=== PATIENT | male | born 1940 | race Caucasian/White ===

== ENCOUNTER 2018-12-03 19:23 | Observation (INO) | payer MEDICAID ==
[2018-12-03 20:31] LABS: HEMOGLOBIN A1C 8.6 % (0-5.9)
[2018-12-03 20:36] LABS: INR 0.93; PROTIME 12.6 Sec (11.9-14.9)
[2018-12-03 20:37] LABS: PARTIAL THROMBOPLASTIN TIME 26.3 Sec (23.0-35.0)
[2018-12-03 20:39] LABS: ANION GAP 11 (5-13); BLOOD UREA NITROGEN 20 mg/dl (7-20); CALCIUM 10.4 mg/dl (8.4-10.2); CARBON DIOXIDE 30 mmol/L (21-31); CHLORIDE 101 mmol/L (97-110); CHOL/HDL RATIO 4.5 RATIO; CHOLESTEROL 180 mg/dl (100-200); GLUCOSE 147 mg/dl (70-220); HDL CHOLESTEROL 40 mg/dl (31-75); LDL CHOLESTEROL,CALCULATED 119 mg/dl; POTASSIUM 3.3 mmol/L (3.5-5.1); SODIUM 142 mmol/L (135-144); TRIGLYCERIDES 104 mg/dl (0-149)
[2018-12-03 20:48] LABS: ADD MAN DIFF? NO
[2018-12-03 20:50] LABS: WHITE BLOOD COUNT 7.1 10^3/ul (4.8-10.8)
[2018-12-03 20:50] LABS: BASOPHIL # 0.1 10^3/ul (0.0-0.1); BASOPHILS % 0.7 % (0.0-2.0); EOSINOPHILS # 0.1 10^3/ul (0.0-0.5); EOSINOPHILS % 1.7 % (0.0-7.0); HEMATOCRIT 42.9 % (42.0-52.0); HEMOGLOBIN 14.7 g/dl (14.0-18.0); LYMPHOCYTES # 1.4 10^3/ul (0.8-2.9); LYMPHOCYTES % 19.4 % (15.0-51.0); MEAN CORPUSCULAR HEMOGLOBIN 30.2 pg (29.0-33.0); MEAN CORPUSCULAR HGB CONC 34.3 g/dl (32.0-37.0); MEAN CORPUSCULAR VOLUME 88.1 fl (82.0-101.0); MEAN PLATELET VOLUME 11.3 fl (7.4-10.4); MONOCYTE # 0.8 10^3/ul (0.3-0.9); MONOCYTES % 10.8 % (0.0-11.0); NEUTROPHIL # 4.8 10^3/ul (1.6-7.5); PLATELET COUNT 225 10^3/UL (140-415); RED BLOOD COUNT 4.87 10^6/ul (4.70-6.10); RED CELL DISTRIBUTION WIDTH 11.9 % (11.5-14.5); TROPONIN-I < 0.012 ng/ml (0.000-0.120)
[2018-12-03] MEDS: POTASSIUM CHLORIDE (SR) 20 MEQ TAB PO (20:59)
[2018-12-03 21:23] LABS: ADD UMIC YES; UR ASCORBIC ACID NEGATIVE (NEGATIVE); UR BACTERIA FEW /HPF (NONE SEEN); UR BILIRUBIN (Dip) NEGATIVE (NEGATIVE); UR BLOOD (Dip) NEGATIVE (NEGATIVE); UR CLARITY CLEAR (CLEAR); UR COLOR YELLOW (YELLOW); UR GLUCOSE (Dip) NEGATIVE (NEGATIVE); UR KETONES (Dip) NEGATIVE (NEGATIVE); UR LEUKOCYTE ESTERASE (Dip) NEGATIVE Leu/ul (NEGATIVE); UR NITRITE (Dip) NEGATIVE (NEGATIVE); UR RBC 1 /HPF (0-5); UR SPECIFIC GRAVITY (Dip) 1.015 (1.003-1.030); UR TOTAL PROTEIN (Dip) 2+ mg/dl (NEGATIVE); UR UROBILINOGEN (Dip) NEGATIVE (NEGATIVE); UR WBC 0 /HPF (0-5)
[2018-12-03] MEDS ORDERED: DOCUSATE SODIUM 100 MG CAP PO (21:30)
[2018-12-03] MEDS ORDERED: BISACODYL (EC) 5 MG TAB PO (21:30)
[2018-12-03] MEDS ORDERED: ACETAMINOPHEN 325 MG TAB PO (21:30)
[2018-12-03] MEDS ORDERED: NACL 0.9% 3 ML SYG IV (21:30)
[2018-12-03 21:51] LABS: AMPHETAMINE/METHAMPHETAMINE Negative (NEGATIVE); BARBITURATES Negative (NEGATIVE); BENZODIAZEPINES Negative (NEGATIVE); CANNABINOIDS Negative (NEGATIVE); COCAINE Negative (NEGATIVE); OPIATES Negative (NEGATIVE)
[2018-12-04 06:09] LABS: ADD MAN DIFF? NO
[2018-12-04 06:15] LABS: BASOPHIL # 0.1 10^3/ul (0.0-0.1); BASOPHILS % 0.8 % (0.0-2.0); EOSINOPHILS # 0.2 10^3/ul (0.0-0.5); EOSINOPHILS % 3.5 % (0.0-7.0); HEMATOCRIT 42.8 % (42.0-52.0); HEMOGLOBIN 14.4 g/dl (14.0-18.0); LYMPHOCYTES # 1.3 10^3/ul (0.8-2.9); LYMPHOCYTES % 21.5 % (15.0-51.0); MEAN CORPUSCULAR HEMOGLOBIN 30.1 pg (29.0-33.0); MEAN CORPUSCULAR HGB CONC 33.6 g/dl (32.0-37.0); MEAN CORPUSCULAR VOLUME 89.5 fl (82.0-101.0); MEAN PLATELET VOLUME 11.4 fl (7.4-10.4); MONOCYTE # 0.9 10^3/ul (0.3-0.9); MONOCYTES % 15.4 % (0.0-11.0); NEUTROPHIL # 3.5 10^3/ul (1.6-7.5); NEUTROPHILS % 58.3 % (39.0-77.0); PLATELET COUNT 198 10^3/UL (140-415); RED BLOOD COUNT 4.78 10^6/ul (4.70-6.10); RED CELL DISTRIBUTION WIDTH 11.9 % (11.5-14.5)
[2018-12-04 06:15] LABS: WHITE BLOOD COUNT 6.1 10^3/ul (4.8-10.8)
[2018-12-04 06:31] LABS: HEMOGLOBIN A1C 8.6 % (0-5.9)
[2018-12-04 06:46] LABS: ALANINE AMINOTRANSFERASE 27 IU/L (13-69); ALBUMIN 3.8 g/dl (3.3-4.9); ALBUMIN/GLOBULIN RATIO 1.35; ALKALINE PHOSPHATASE 74 IU/L (42-121); ANION GAP 8 (5-13); ASPARTATE AMINO TRANSFERASE 23 IU/L (15-46); BILIRUBIN,INDIRECT 0.5 mg/dl (0-1.1); BILIRUBIN,TOTAL 0.5 mg/dl (0.2-1.3); BLOOD UREA NITROGEN 18 mg/dl (7-20); CALCIUM 9.6 mg/dl (8.4-10.2); CARBON DIOXIDE 31 mmol/L (21-31); CHLORIDE 101 mmol/L (97-110); CHOL/HDL RATIO 5.1 RATIO; CHOLESTEROL 159 mg/dl (100-200); CREATININE 0.79 mg/dl (0.61-1.24); GLUCOSE 157 mg/dl (70-220); HDL CHOLESTEROL 31 mg/dl (31-75); LDL CHOLESTEROL,CALCULATED 102 mg/dl; MAGNESIUM 1.6 mg/dl (1.7-2.5); POTASSIUM 3.9 mmol/L (3.5-5.1); SODIUM 140 mmol/L (135-144); TOTAL PROTEIN 6.6 g/dl (6.1-8.1); TRIGLYCERIDES 130 mg/dl (0-149)
[2018-12-04] MEDS ORDERED: hydrALAzine 20 MG INJ IV (07:00)
[2018-12-04 07:48] LABS: CREATINE KINASE 85 IU/L (23-200)
[2018-12-04 08:01] LABS: CK INDEX 2.1; CK-MB 1.77 ng/ml (0.0-2.4); TROPONIN-I < 0.012 ng/ml (0.000-0.120)
[2018-12-04] MEDS: ASPIRIN 81 MG TAB PO (09:20)
[2018-12-04] MEDS ORDERED: GLUCAGON 1 MG INJ IM (10:00)
[2018-12-04] MEDS ORDERED: GLUCOSE GEL 15 GRAM TUBE PO ×2 (10:00)
[2018-12-04] MEDS ORDERED: GLUCOSE GEL 15 GRAM TUBE BUCCAL (10:00)
[2018-12-04] MEDS ORDERED: DEXTROSE 50% 50 ML SYRINGE IV ×2 (10:00)
[2018-12-04] MEDS: ATORVASTATIN 80 MG TAB PO ×2 (11:53→20:22)
[2018-12-04] MEDS: INSULIN ASPART [NOVOLOG] 3 ML PEN SC ×3 (11:56→20:22)
[2018-12-04 13:43] LABS: CREATINE KINASE 147 IU/L (23-200)
[2018-12-04] MEDS: MAGNESIUM SULFATE 2 GM/50 ML 50 ML IVPB (13:44)
[2018-12-04 13:56] LABS: CK INDEX 1.9; TROPONIN-I < 0.012 ng/ml (0.000-0.120)
[2018-12-04 13:59] LABS: CK-MB 2.78 ng/ml (0.0-2.4)
[2018-12-04 16:16] LABS: ERYTHROCYTE SEDIMENTATION RATE 6 mm/Hr (0-20)
[2018-12-04 16:55] LABS: RAPID PLASMA REAGIN NONREACTIVE (NR)
[2018-12-05] MEDS: ACCU-CHEK XX (02:00)
[2018-12-05 05:59] LABS: ADD MAN DIFF? NO
[2018-12-05 06:03] LABS: WHITE BLOOD COUNT 6.2 10^3/ul (4.8-10.8)
[2018-12-05 06:03] LABS: BASOPHILS % 0.6 % (0.0-2.0); EOSINOPHILS # 0.3 10^3/ul (0.0-0.5); HEMATOCRIT 43.4 % (42.0-52.0); HEMOGLOBIN 14.7 g/dl (14.0-18.0); LYMPHOCYTES # 1.3 10^3/ul (0.8-2.9); LYMPHOCYTES % 20.4 % (15.0-51.0); MEAN CORPUSCULAR HEMOGLOBIN 30.2 pg (29.0-33.0); MEAN CORPUSCULAR HGB CONC 33.9 g/dl (32.0-37.0); MEAN CORPUSCULAR VOLUME 89.1 fl (82.0-101.0); MEAN PLATELET VOLUME 11.3 fl (7.4-10.4); MONOCYTE # 0.8 10^3/ul (0.3-0.9); MONOCYTES % 13.3 % (0.0-11.0); NEUTROPHIL # 3.8 10^3/ul (1.6-7.5); NEUTROPHILS % 61.2 % (39.0-77.0); PLATELET COUNT 200 10^3/UL (140-415); RED BLOOD COUNT 4.87 10^6/ul (4.70-6.10); RED CELL DISTRIBUTION WIDTH 11.7 % (11.5-14.5)
[2018-12-05 07:00] LABS: PHOSPHORUS 3.2 mg/dl (2.5-4.9)
[2018-12-05 07:00] LABS: ANION GAP 7 (5-13); BLOOD UREA NITROGEN 22 mg/dl (7-20); CALCIUM 9.5 mg/dl (8.4-10.2); CARBON DIOXIDE 29 mmol/L (21-31); CHLORIDE 102 mmol/L (97-110); CREATININE 0.84 mg/dl (0.61-1.24); GLUCOSE 167 mg/dl (70-220); MAGNESIUM 1.8 mg/dl (1.7-2.5); POTASSIUM 4.1 mmol/L (3.5-5.1); SODIUM 138 mmol/L (135-144)
[2018-12-05] MEDS: ASPIRIN 81 MG TAB PO (08:11)
[2018-12-05] MEDS: INSULIN ASPART [NOVOLOG] 3 ML PEN SC ×2 (08:15→11:48)
[2018-12-06] MEDS ORDERED: ACCU-CHEK XX (02:00)
== END 2018-12-05 13:33 | disposition home or self-care (01) ==
LOC: TEL 21:27 → E/R 19:23 → TEL 12-04 01:26
DX: R53.1 Weakness (principal); E11.8 Type 2 diabetes mellitus with unspecified complications; I10 Essential (primary) hypertension; Z86.718 Personal history of other venous thrombosis and embolism; Z79.84 Long term (current) use of oral hypoglycemic drugs; Z79.82 Long term (current) use of aspirin
CPT/HCPCS: 36415; 70450; 70551; 71045; 80048; 80053; 80061; 80307; 81001; 82550; 82553; 82962; 83036; 83735; 84100; 84443; 84484; 85025; 85610; 85651; 85730; 86592; 93005; 93306; 93880; 97161; 97167; 99285-25; G0378